=== PATIENT | female | born 1975 | race Hispanic/Latino ===

== ENCOUNTER 2017-10-26 18:20 | Emergency (ER) | payer OTHER ==
[2017-10-26 18:54] VITALS: BP 121/80; RESP 18; TEMP 98.1
--- NOTE | 2017-10-26 19:02 | ED PDOC ---
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 Patient stated she accidentally punctured her left palm/hand with kitchen knife. Patient stated last tetanus was 2 years ago. Patient is right hand dominant. Patient denies other complains. Time/Duration: Other (see hpi) Context: Home Past Medical History - Provider Review Nursing Documentation Reviewed: Yes - Psychiatric Hx Substance Use: No - Anesthesia Hx Anesthesia: No Hx Anesthesia Reactions: No Hx Malignant Hyperthermia: No Family/Social History - Physician Review Nursing Documentation Reviewed: Yes Family/Social History: Other (noncontributory) Smoking Status: Never Smoked Hx Alcohol Use: No Hx Substance Use: No Allergies/Home Meds Allergies/Adverse Reactions: Allergies No Known Allergies Allergy (Verified 10/26/17 18:46) Home Medications: Home Meds Medication Instructions Recorded Confirmed No Known Home Med 10/26/17 10/26/17 Review of Systems - Review of Systems Constitutional: Normal. absent: Fatigue, Weight Change, Fevers Eyes: Normal ENT: Normal Respiratory: Normal Cardiovascular: Normal Gastrointestinal: Normal Genitourinary Female: Normal Musculoskeletal: Normal Skin: Laceration (left hand/ palm laceration) Neurological: Normal Endocrine: Normal Hemo/Lymphatic: Normal Psychiatric: Normal Physical Exam Vital Signs Temp Pulse Resp BP Pulse Ox 10/26/17 18:20 98.1 F 74 18 121/80 100 Temperature: Afebrile Blood Pressure: Normal Pulse: Regular Respiratory Rate: Normal Appearance: Positive for: Well-Appearing, Non-Toxic, Comfortable Pain Distress: None Mental Status: Positive for: Alert and Oriented X 3 - Systems Exam Head: Present: Atraumatic, Normocephalic Mouth: Present: Moist Mucous Membranes Neck: Present: Normal Range of Motion Upper Extremity: Present: Normal ROM, NORMAL PULSES, Neurovascularly Intact, Capillary Refill < 2s, Other ((+) 1 cm left mid palm/hand laceration, approx. 1 cm. No active bleeding. ). No: Cyanosis, Edema, Tenderness, Swelling, Erythema Lower Extremity: Present: Normal Inspection, Normal ROM Neurological: Present: GCS=15, CN II-XII Intact, Speech Normal, Motor Func Grossly Intact, Normal Sensory Function, Normal Cerebellar Funct, Gait Normal Skin: Present: Warm, Dry, Normal Color. No: Rashes Psychiatric: Present: Alert, Oriented x 3, Normal Insight, Normal Concentration Medical Decision Making ED Course and Treatment: 10/26/17 19:52 Re-evaluation. Patient feels better. Discussed results and plan with patient who expresses understanding. All questions answered and there is agreement with the plan to discharge home with instructions. Patient stable for discharge. Return if symptoms persist or worsen. I recommended to keep wound clean and dry for 2 days, then to clean wound daily with soap and water. to return to emergency if wound becomes infected, or painful. Re-evaluation Time: 19:53 Reassessment Condition: Re-examined, Improved - Procedure PROCEDURE NOTE (Text): 10/26/17 19:53 PROCEDURE: LACERATION REPAIR Performed by the emergency provider Location: left hand Length: 1.5 cm Description: clean wound edges , no foreign bodies Distal CMS: Normal. No deficits. Neurovascularly intact. Anesthesia: Lidocaine 1% with Epi, radial nerve block on wrist Preparation: The wound was cleaned with NS and [place]. The area was prepped and draped in the usual sterile fashion. Exploration: The wound was explored and no foreign bodies were found. Procedure: The wound was closed with 4-0 Monocryl, single layer, interrupted. There was good approximation. In total, 2 sutures were used. Post-Procedure: Good closure and hemostasis. The patient tolerated the procedure well and there were no complications. CSM remains intact. Post procedure dressing applied Disposition/Present on Arrival - Present on Arrival Any Indicators Present on Arrival: No History of DVT/PE: No History of Uncontrolled Diabetes: No Urinary Catheter: No History of Decub. Ulcer: No History Surgical Site Infection Following: None - Disposition Have Diagnosis and Disposition been Completed?: Yes Diagnosis: Laceration of left palm without complication Disposition: HOME/ ROUTINE Disposition Time: 19:56 Patient Plan: Discharge Patient Problems: Current Active Problems Problem Status Onset Laceration of left palm without complication Acute Condition: IMPROVED Discharge Instructions (ExitCare): Laceration Repair With Stitches (DC) Additional Instructions: Call private doctor for follow up visit in 1-2 days. Keep wound clean and dry for 2 days, then clean wound daily with soap and water. Sutures are absorbable , so they will fall off by themselves. Return to emergency if wound becomes infected. Referrals: Pantera Leslie MD [Family Provider] - Follow up with primary Forms: [place] ([place]izen [place])
[2017-10-26 20:20] VITALS: PULSE 61
[2017-10-26 20:21] VITALS: O2SAT 98
== END 2017-10-26 20:20 | disposition home or self-care (01) ==
LOC: ED 18:20
DX: S61.412A Laceration without foreign body of left hand, initial encounter (principal); W26.0XXA Contact with knife, initial encounter